=== PATIENT | female | born 1980 | race African-American/Black ===

== ENCOUNTER 2019-10-21 12:00 | Day surgery (SDC) | payer BC ==
[~2019-10-21] VITALS: Ht 162.6 cm; Wt 84.4 kg
[~2019-10-21 12:00] MED LIST: FERR325T81 PO; LR 1,000 ML IV SCH
[2019-10-21] MEDS ORDERED: KETOROLAC 60 MG/2 ML VIAL (J1885) As Ordered ONE (14:41)
[2019-10-21] MEDS ORDERED: dexameTHASONE 4 MG/ML 1ML VIAL (J1100) As Ordered ONE (14:41)
[2019-10-21] MEDS ORDERED: fentaNYL 100 MCG/2 ML INJECTION (J3010) As Ordered ONE (14:41)
[2019-10-21] MEDS ORDERED: MIDAZOLAM INJ 2 MG/2 ML VIAL (J2250) As Ordered ONE (14:41)
[2019-10-21] MEDS ORDERED: LIDOCAINE 2% INJ 100 MG/5 ML SDV (FOR ANES.) As Ordered ONE (14:41)
[2019-10-21] MEDS ORDERED: ONDANSETRON 4MG/2ML VIAL (J2405) As Ordered ONE (14:42)
[2019-10-21] MEDS ORDERED: propofoL 200 MG/20 ML VIAL As Ordered ONE (14:42)
[2019-10-21] MEDS: fentaNYL 100 MCG/2 ML INJECTION (J3010) IV PRN ×3 (15:28→15:38)
[2019-10-21] MEDS ORDERED: METOCLOPRAMIDE INJ 10MG/2ML VIAL (J2765) IV PRN (15:30)
[2019-10-21] MEDS ORDERED: NORCO, ANEXSIA 5/325MG TABLET (HYDROcodone/ACETAMINOPHEN) PO PRN (15:30)
[2019-10-21] MEDS ORDERED: LR 1,000 ML IV SCH ×2 (15:30)
[2019-10-21] MEDS ORDERED: ONDANSETRON 4MG/2ML VIAL (J2405) IV PRN (15:30)
[2019-10-21] MEDS ORDERED: PERCOCET 5MG/325MG TAB PO PRN (15:30)
[2019-10-21 16:45] VITALS: BP 117/73
[2019-10-21] MEDS ORDERED: IBUPROFEN 600 MG TAB PO PRN (21:00)
--- NOTE | 2019-10-23 10:26 | RO ---
DATE OF SURGERY: 10/21/2019 PREOPERATIVE DIAGNOSES AND INDICATION FOR SURGERY: Bleeding and pain. POSTOPERATIVE DIAGNOSES: Bleeding and pain. PROCEDURE: Dilation and curettage (D and C), hysteroscopy, NovaSure ablation. SURGEON: Yesenia Martinez MD RESPIRATORY PHYSICIAN: None ANESTHESIA: Laryngeal mask airway (LMA). BRIEF DESCRIPTION OF PROCEDURE AND FINDINGS: Betty was brought to the operating room, where sufficient LMA anesthesia was induced. She was prepped, draped, and positioned in the usual sterile fashion, the bladder emptied, and the cervix sounded. We got an endometrial cavity length of 6 at this point but did not yet have width. We subsequently measured it at 4.5, but at this point we did not have that measurement yet. We dilated the cervix in order to allow introduction of the hysteroscope, which was used to visualize the endometrial cavity. As you can see on the photos, there was projecting from the right lateral uterine cavity a small few millimeter size polypoid overgrowth consistent with the patient's bleeding concerns but no large distortions of the endometrial cavity. There was also a broad-based polypoid growth anteriorly which had a little stiffer texture on curettage, but we had samplings in both those areas, and they were both small enough that I do not expect them to prevent the ablation from being effective. That cavity was otherwise normal in shape and contour, and the tubal ostia were normal in appearance, as well, as was the cervix. We then, of course, moved on to the curettage and got specimen endometrial curettings. Had good sampling and were careful to sample in those areas of polypoid overgrowth, as already noted; and then the NovaSure ablative device was placed. Length was set at 6. Width was set at 4.5. An uncomplicated NovaSure ablation was then carried out, and the procedure was then ended. Estimated blood loss for the procedure was approximately 2 mL. Fluid replacement was crystalloid. COMPLICATIONS: None. CONDITION AND DISPOSITION: Betty tolerated the procedure well and was recovering in the recovery room in good condition.
== END 2019-10-21 17:00 | disposition home or self-care (01) ==
LOC: M SDC 12:00
PROVIDERS: ATTEND Obstetrics & Gynecology
DX: N85.00 Endometrial hyperplasia, unspecified (principal); R10.2 Pelvic and perineal pain; N93.9 Abnormal uterine and vaginal bleeding, unspecified; D64.9 Anemia, unspecified; G43.909 Migraine, unspecified, not intractable, without status migrainosus; Z87.59 Personal history of other complications of pregnancy, childbirth and the puerperium; Z79.899 Other long term (current) drug therapy
CPT/HCPCS: 58563; 88305; J1100; J1885; J2250; J2405; J3010